=== PATIENT | female | born 1935 | race Caucasian/White ===

== ENCOUNTER 2020-03-26 10:19 | Emergency (ER) | payer MEDICARE, BC ==
--- NOTE | 2020-03-26 11:47 | RAD ---
RIGHT HIP 2 VIEWS: HISTORY: Hip pain. FINDINGS: There are arthritic changes of the hip. There are osteophytic changes along the acetabulum and femor al head and neck junction. Mild superior joint space narrowing is present. IMPRESSION: Mild to moderate osteoarthritic changes of the hip. POS: BRIAN
--- NOTE | 2020-03-26 11:49 | RAD ---
AP view of the pelvis INDICATION: Right hip pain COMPARISON: None. FINDINGS: Bones: No acute fracture or subluxation is evident. Bone mineralization appears within normal limits. Hips: There is severe left and moderate right hip osteoarthrosis. SI joints and symphysis pubis: There is mild left SI joint osteoarthrosis. Intrapelvic contents: Within normal limits. IMPRESSION: No acute osseous abnormality.
[2020-03-26] MEDS ORDERED: Ketorolac Tromethamine 30 MG/ML VIAL ONE (12:34)
[2020-03-26] MEDS ORDERED: traMADol HCl 50 MG TAB ONE (13:31)
== END 2020-03-26 13:55 | disposition home or self-care (01) ==
LOC: ERS 10:19
DX: M16.11 Unilateral primary osteoarthritis, right hip (principal); E78.5 Hyperlipidemia, unspecified; I10 Essential (primary) hypertension; F41.9 Anxiety disorder, unspecified
CPT/HCPCS: 72170; 73502; J1885; 96372

== ENCOUNTER 2022-07-29 12:20 | Outpatient (CLI) | payer MEDICARE, BC | END 2022-07-29 12:21 | disposition home or self-care (01) | LOC: TBSIIMAG 12:20 | PROVIDERS: ATTEND Neurological Surgery | DX: M48.062 Spinal stenosis, lumbar region with neurogenic claudication (principal); M81.0 Age-related osteoporosis without current pathological fracture; M47.816 Spondylosis without myelopathy or radiculopathy, lumbar region; M41.9 Scoliosis, unspecified | CPT/HCPCS: 72110; 72148 ==

== ENCOUNTER 2023-03-15 16:32 | Emergency (ER) | payer MEDICARE, BC ==
[~2023-03-15 16:32] MED LIST: Iopamidol-370 76% 500 ML MDV (1 ML CHARGE) ONE
[2023-03-15] MEDS ORDERED: Morphine 4 MG/ML VIAL ONE (17:15)
[2023-03-15] MEDS ORDERED: Ondansetron PF 4 MG/2 ML Vial ONE (17:15)
[2023-03-15 17:27] LABS: #Lymphocytes 1.1 thou/uL (1.20-3.40); #Monocytes 0.9 thou/uL (0.11-0.59); #Neutrophils 9.9 thou/uL (1.40-6.50); %Basophils 0.3 % (0.0-1.0); %Eosinophils 0.4 % (0.0-10.0); %Lymphocytes 9.2 % (21.0-51.0); %Monocytes 7.4 % (0.0-10.0); %Neutrophils 82.7 % (42.0-75.0); Mean Corpuscular HGB CONC 35.5 g/dL (32.0-36.0); Mean Platelet Volume 9.6 fL (7.4-10.4); Platelet Count 165 10x3/uL (130-400); RBC Distribution Width 12.9 % (11.5-14.5); Red Blood Cell (RBC) Count 4.86 mill/uL (4.20-5.40)
[2023-03-15 17:53] LABS: ALT (SGPT) 11 U/L (8-55); AST (SGOT) 24 U/L (5-34); Alkaline Phosphatase 53 U/L (40-110); Anion Gap 15 mmol/L (10-20); BUN (Urea Nitrogen) 24 mg/dL (9.8-20.1); Bilirubin, Total 0.4 mg/dL (0.2-1.2); Calc. Creatinine Clearance 0 mL/min (70-130); Calcium 8.6 mg/dL (7.8-10.44); Carbon Dioxide 19 mmol/L (23-31); Chloride 104 mmol/L (98-107); Estimated GFR 72; Globulin 2.6 g/dL (2.4-3.5); Glucose 131 mg/dL (83-110); Lipase 57 U/L (8-78); Protein, Total 6.6 g/dL (5.8-8.1); Sodium 134 mmol/L (136-145)
[2023-03-15] MEDS ORDERED: Mag-Al 1200 mg/1200 mg/30 ML UDCUP ONE (19:20)
[2023-03-15] MEDS ORDERED: Lidocaine Viscous Sol 2% 15 ml UD Cup ONE (19:20)
[2023-03-15 19:38] LABS: Bilirubin Negative (Negative); Blood, Urine Negative (Negative); Clarity Clear (Clear); Glucose, Urine (Dipstick) Normal (Negative); Ketone, Urine Negative (Negative); Leukocyte 25 Leu/uL (Negative); Nitrite Negative (Negative); Protein, Urine (Dipstick) 10 mg/dL (Neg-Trace); RBC/HPF 0-3 HPF (0-3); Squamous Epithelial 0-3 HPF (0-3); Urobilinogen Normal mg/dL (Less than 2)
[2023-03-15 19:40] LABS: Bacteria/HPF Rare-Few HPF (None Seen); Specific Gravity, Urine Greater than 1.060 (1.002-1.036)
[2023-03-15] MEDS ORDERED: Dicyclomine 20 MG/2 ML VIAL ONE (20:01)
== END 2023-03-15 20:31 | disposition home or self-care (01) ==
LOC: ERS 16:32
DX: K52.9 Noninfective gastroenteritis and colitis, unspecified (principal); D72.829 Elevated white blood cell count, unspecified; I10 Essential (primary) hypertension; E78.5 Hyperlipidemia, unspecified
CPT/HCPCS: 36415; 74177; 80053; 81003; 81015; 83690; 84484; 85025; 93005; 96372; 96374; 96375; J2270; J2405; Q9967